=== PATIENT | female | born 1970 | race African-American/Black ===

== ENCOUNTER → 2016-09-14 | Outpatient (CLI) | payer BC ==
[~2016-09-14] VITALS: Ht 175.3 cm; Wt 185.0 kg
[~2016-09-14] MED LIST: AMLODIPINE BES2.5 MG PO; BENTYL10 MG PO; FUROSEMIDE20 MG PO; HYDROCHLOROTH12.5 M3 PO; IRON325 MG PO; KLOR-CON M1010 MEQ PO; NOHOMEMEDS; NORVASC5 MG PO; OMEPRAZOLE20 MG PO; PROBIOTIC1 EAC1 PO
[2016-09-14 12:07] LABS: HEMATOCRIT 34.7 % (36.0-46.0); MCV 77.5 FL (83-99)
[2016-09-14 12:26] LABS: ANION GAP 9 MEQ/L (2-14); CHLORIDE 102 MEQ/L (99-109); SAMPLE HEMOLYSIS CHECK 0; SAMPLE ICTERIC CHECK 0; SAMPLE LIPEMIA CHECK 0; SODIUM 136 MEQ/L (136-147)
[2016-09-14 12:32] LABS: GFR ESTIMATE (CALCULATED) > 59 mL/min/; GLUCOSE 103 mg/dL (70-99); UREA NITROGEN (BUN) 9 mg/dL (9-23)
== END | disposition home or self-care (01) ==
LOC: AMB 11:19
PROVIDERS: Anesthesiology
PROC: 0DBP8ZX Excision of Rectum, Via Natural or Artificial Opening Endoscopic, Diagnostic (ICD-10-PCS; principal; 2016-09-14)
DX: K62.5 Hemorrhage of anus and rectum (principal); K62.1 Rectal polyp; D64.9 Anemia, unspecified; K64.8 Other hemorrhoids
CPT/HCPCS: 80048; 85014; 85018; 88305; 93005

== ENCOUNTER → 2017-12-27 | Outpatient (CLI) | payer BC ==
[~2017-12-27] VITALS: Ht 175.3 cm; Wt 188.6 kg
[~2017-12-27] MED LIST changes: +IBUPROFEN800 MG PO; +METHOCARBAMOL500 MG PO; +NORVASC2.5 MG PO
[2017-12-27 12:23] LABS: HEMATOCRIT 36.1 % (36.0-46.0); HEMOGLOBIN 11.3 G/DL (11.9-15.5); MCV 86.6 FL (83-99)
== END | disposition home or self-care (01) ==
LOC: AMB 12-22 12:00
PROVIDERS: Anesthesiology
DX: D50.9 Iron deficiency anemia, unspecified (principal); K29.70 Gastritis, unspecified, without bleeding; K44.9 Diaphragmatic hernia without obstruction or gangrene; K22.10 Ulcer of esophagus without bleeding; K64.8 Other hemorrhoids; K21.9 Gastro-esophageal reflux disease without esophagitis; M19.90 Unspecified osteoarthritis, unspecified site
CPT/HCPCS: 85014; 85018; 88305; 88342 TC; 93005; J2250